=== PATIENT | female | born 1995 | race Caucasian/White ===

== ENCOUNTER 2017-07-01 13:45 | Inpatient (IN) | payer OTHER ==
[~2017-07-01] VITALS: Ht 154.9 cm; Wt 3.2 kg
[2017-07-22] MEDS ORDERED: PRENATAL 19 TA1 EAC1 PO (20:56)
[2017-07-22] MEDS ORDERED: VALTREX1000 MG PO (20:56)
== END 2017-07-25 19:58 | DRG 766 ==
LOC: LDR 07-22 20:01 → O/R 07-23 13:48 → OB/GYN 07-23 15:26 → SURH 07-28 13:45
PROVIDERS: Obstetrics & Gynecology Maternal & Fetal Medicine
PROC: 4A1HXCZ Monitoring of Products of Conception, Cardiac Rate, External Approach (ICD-10-PCS; 2017-07-22)
PROC: 10D00Z1 Extraction of Products of Conception, Low, Open Approach (ICD-10-PCS; principal; 2017-07-23 18:30)
DX: O82 Encounter for cesarean delivery without indication (principal); Z37.0 Single live birth; Z3A.39 39 weeks gestation of pregnancy; O42.02 Full-term premature rupture of membranes, onset of labor within 24 hours of rupture

== ENCOUNTER 2017-07-22 15:00 | Outpatient (CLI) | payer OTHER ==
[2017-07-22] MEDS ORDERED: VALTREX1000 MG PO (20:56)
[2017-07-22] MEDS ORDERED: PRENATAL 19 TA1 EAC1 PO (20:56)
== END 2017-07-22 18:00 | disposition home or self-care (01) ==
LOC: NST 15:00
DX: Z34.03 Encounter for supervision of normal first pregnancy, third trimester (principal)

== ENCOUNTER 2019-01-15 11:35 | Inpatient (IN) | payer OTHER ==
[~2019-01-15] VITALS: Ht 154.9 cm; Wt 2.7 kg
[~2019-01-15 11:35] MED LIST: PRENATAL 19 TA1 EAC1 PO; VALTREX1000 MG PO
== END 2019-01-25 15:27 | disposition home or self-care (01) | DRG 788 ==
LOC: OB/GYN 01-22 09:09 → LDR 01-22 09:09 → OB/GYN 01-22 14:58 → RECOVERY 01-28 15:15
PROVIDERS: ADMIT Obstetrics & Gynecology
PROC: 4A1HXCZ Monitoring of Products of Conception, Cardiac Rate, External Approach (ICD-10-PCS; 2019-01-22)
PROC: 10D00Z1 Extraction of Products of Conception, Low, Open Approach (ICD-10-PCS; principal; 2019-01-22 13:15)
DX: O82 Encounter for cesarean delivery without indication (principal); Z3A.37 37 weeks gestation of pregnancy; Z37.0 Single live birth